=== PATIENT | female | born 1985 | race Caucasian/White ===

== ENCOUNTER 2020-06-24 02:27 | Outpatient (CLI) | payer OTHER, SELFPAY ==
[2020-06-24 18:16] LABS: SARS-CoV-2 RNA PCR Negative
== END 2020-06-24 02:28 | disposition home or self-care (01) ==
LOC: ANHCOVIDDT 02:28
PROVIDERS: Visit Provider Obstetrics & Gynecology
DX: Z01.812 Encounter for preprocedural laboratory examination (principal); Z20.828 Contact with and (suspected) exposure to other viral communicable diseases
CPT/HCPCS: 87635; C9803; U0003

== ENCOUNTER 2020-06-26 01:51 | Day surgery (SDC) | payer OTHER, SELFPAY ==
[2020-06-18 08:24] VITALS: BMI 38.7
[2020-06-26] MEDS: ACETAMINOPHEN 500 MG TABLET 1000 MG PO (10:21)
[2020-06-26] MEDS: LACTATED RINGERS 1,000 ML 30 ML IV CONT ×2 (10:28→13:40)
[2020-06-26 10:32] VITALS: BP 140/71; PULSE 81; TEMP 36.7; O2SAT 98
--- NOTE | 2020-06-26 11:26 | P.PNAN_ITS ---
Anes - Initial Pre Proc Eval Procedure: Operation Date: 06/26/20 12:00 Proposed Procedures p Hysteroscopy, Dilation and Curettage, Possible Polypectomy - Praful Armenta MD Date/Time: 06/26/20 11:26 Surgeon: Praful Armenta MD Pre Op Diagnosis: irregular bleeding/ Questionable Uterine Polyp Patient Data Age: 34 Gender: F Height: 5 ft 4 in Weight: 106.1 kg Last Vital Signs Temp 36.7 C 06/26/20 10:32 Pulse 81 06/26/20 10:32 BP 140/71 06/26/20 10:32 Pulse Ox 98 06/26/20 10:32 Allergies Allergy/AdvReac Type Severity Reaction Status Date / Time No Known Allergies Allergy Unknown Verified 06/18/20 08:23 Home Medications Medication Instructions Recorded Confirmed Type fexofenadine-pseudoephedrine 1 tablet PO Q12H PRN 06/18/20 06/26/20 History [Lorna-D 12 Hour] Patient hx anesthesia problems: none Family hx anesthesia problems: none [facility] Past Medical History Medical History (Updated 06/26/20 @ 11:26 by Joaquín Sinha MD) Morbid obesity BUBBA (obstructive sleep apnea) Surgical History Surgical History (Updated 06/26/20 @ 11:26 by Joaquín Sinha MD) History of section S/P laparoscopic cholecystectomy Social History Social History Smoking status: Never smoker Living arrangements: with family Spiritual care concerns: No Anes - Eval Final PreProcedure Day of Procedure 06/26/20 11:26 Patient weight: morbidly obese Heart: regular rate and rhythm Lungs: clear to auscultation Airway: Mallampati scale class II Neurological: alert and oriented Last oral intake: >/= 8 hours ASA classification: III Emergent: no Anesthetic plan: proceed Anesthesia type and monitoring: general GIVS and standard monitoring Informed Consent: The patient's anesthetic plan and its attendant risks and benefits were discussed with the patient/family/POA. Questions were solicited and answers provided to the satisfaction of the patient/family/POA.
--- NOTE | 2020-06-26 11:44 | PM.IMHP ---
H&P: HPI History of Present Illness Date/Time: 06/26/20 11:44 Chief complaint: irregular bleeding/ Questionable Uterine Polyp Narrative: 34 y/o with heavy vaginal bleeding. Ultrasound exam shows an endometrium that is 1.7cm thick. Adnexa show functional type changes. Review of Systems Review of Systems: All systems reviewed & are unremarkable except as noted in HPI and below PMFSH Past Medical History Medical History Morbid obesity BUBBA (obstructive sleep apnea) Surgical History Surgical History History of section S/P laparoscopic cholecystectomy Social History Social History Smoking status: Never smoker Living arrangements: with family Spiritual care concerns: No Meds Home Medications and Allergies Home Medications Medication Instructions Recorded Confirmed Type fexofenadine-pseudoephedrine 1 tablet PO Q12H PRN 06/18/20 06/26/20 History [Lorna-D 12 Hour] Allergies Allergy/AdvReac Type Severity Reaction Status Date / Time No Known Allergies Allergy Unknown Verified 06/18/20 08:23 Vital Signs Vital Signs - 24 hr 06/26/20 10:32 Temperature 36.7 C Pulse Rate 81 Blood Pressure 140/71 Pulse Oximetry 98 Exam Const: Orientation/consciousness: patient oriented x3 Other: Well-developed, well-nourished female in no acute distress. Neck: Thyroid: thyroid normal Lymphatic: no lymphadenopathy noted (in neck, axilla or inguinal nodes) Resp: Effort & Inspection: normal respiratory effort Auscultation: clear to auscultation bilaterally Cardio: Rate: regular rate Rhythm: regular rhythm Heart sounds: S1 normal heart sound present and S2 normal heart sound present GI: Other: ABD: Soft, nontender, nondistended. No guarding or rebound tenderness. No hepatosplenomegaly. : General: Yes no CVA tenderness Other: External genitalia: normal female hair distribution, without lesion. Urethral meatus: no lesion, non prolapsed. Bladder: no mass, nontender Vagina: well-estrogenized, without lesion or discharge. No cystocele or rectocele. Cervix: no lesion or discharge. Uterus: small, anteverted, freely mobile, nontender Adnexa: no mass or tenderness. Anus/perineum: no lesions, nontender Back/Spine/Pelvis: Back: no CVA tenderness Skin: General skin exam: normal color and no rashes or lesions noted Neuro: General: patient oriented x3 Extrem: Other: Extremities: nontender with no edema Psych: Mental Status: mental status grossly normal Affect: normal affect Assessment and Plan Assessment and plan (1) Menorrhagia: Code(s): N92.0 - Excessive and frequent menstruation with regular cycle Status: Acute Additional Plan I offered medical vs. surgical management. She prefers the latter. Specifically, I offered her a hysteroscopy with dilation and sharp curettage, with possible endometrial polypectomy. She understands risks of surgery to include risks of anesthesia, risks of pain, infection, bleeding, blood products, thromboembolic phenomena and damage to adjacent structures such as bowel, bladder, ureters, blood vessels and nerves. She understands all these risks and elects to proceed with surgery.
--- NOTE | 2020-06-26 12:12 | WPDHPUPDATE1 ---
History and Physical Update Update Date/Time: 06/26/20 12:12 History and Physical has been reviewed, including an updated exam of the patient. There are NO changes in the patient's condition. Risks, benefits, and alternatives have been discussed and questions answered. Patient agrees to proceed with procedure.
--- NOTE | 2020-06-26 13:35 | P.OP_ITS ---
Procedure Note - Detailed Date of procedure: 06/26/20 Pre-op diagnosis: irregular bleeding/ Questionable Uterine Polyp Heavy vaginal bleeding Post-op diagnosis: same Procedure performed: Hysteroscopy Dilation and sharp curettage Description of procedure: The patient was taken to the operating room where she was prepared and draped in the usual sterile fashion in the dorsal lithotomy position. The bladder was drained with a red rubber catheter. A sterile speculum was placed into the vagina. The anterior lip of the cervix was grasped with single-tooth tenaculum. Ten mL of 1% lidocaine was administered in a p aracervical block. The cervix was then gently dilated using Hegar dilators until an 8 mm dilator could be passed. Hysteroscopy was performed using sterile saline as a distention medium. Findings are as noted above. Sharp curettage was then performed, and endometrial curettings were collected on a Telfa pad and passed off to be sent to pathology. Hemostasis was excellent. Sponge, lap, needle and instrument counts were correct. The patient was awakened and taken to the recovery room in stable condition. I was present and scrubbed through the entire procedure. Implants: None Anesthesia: MAC and local (1% lidocaine) Surgeon: Praful Armenta MD Estimated blood loss (mL): 10 Drains: No Packing: No Pathology: yes (endometrial curettings) Complications: None Condition: stable Disposition: PACU Findings: Endometrial tissue was thick, but otherwise unremarkable. Both tubal ostia were seen.
[2020-06-26] MEDS: KETOROLAC 30 MG/ML VIAL (*BKC) IV PUSH (13:38)
[2020-06-26 13:40] VITALS: BP 129/74; PULSE 90; RESP 22; O2SAT 99
[2020-06-26 14:10] VITALS: BP 124/75; PULSE 63; RESP 16
[2020-06-26] MEDS: oxyCODONE HCL (*CRX) 5 MG TAB IR PO (14:13)
[2020-06-26 14:40] VITALS: BP 114/76; PULSE 63; RESP 16
== END 2020-06-26 14:50 | disposition home or self-care (01) ==
PROVIDERS: Visit Provider Obstetrics & Gynecology
PROC: 0U5B8ZZ Destruction of Endometrium, Via Natural or Artificial Opening Endoscopic (ICD-10-PCS; CPT 58563; principal; 2020-06-26 12:00)
DX: N92.0 Excessive and frequent menstruation with regular cycle (principal); G47.33 Obstructive sleep apnea (adult) (pediatric); E66.01 Morbid (severe) obesity due to excess calories; Z68.41 Body mass index [BMI] 40.0-44.9, adult
CPT/HCPCS: 58558; 88305; A9270; J1885; J2250; J2704; J3010; J7030; J7120

== ENCOUNTER 2021-01-10 09:36 | Emergency (ER) | payer OTHER, SELFPAY ==
[2021-01-10 10:17] VITALS: BP 126/89; PULSE 80; RESP 16; TEMP 36.4; O2SAT 98
--- NOTE | 2021-01-10 10:23 | ED.URI ---
HPI - URI/Sore Throat General Chief Complaint: Upper Respiratory Infection Stated Complaint: covid symptoms Time Seen by Provider: 01/10/21 10:23 Source: patient Mode of arrival: ambulatory Limitations: no limitations History of Present Illness HPI Narrative: Serenity Sheppard is a 35 yo female who was diagnosed with Covid yesterday at her testing site and is here today to have her vital signs checked. Patient is nervous about the Covid diagnosis because friends sister within 24 hours of a Covid positive test and her was very ill. He also received vaccine results of radiology vaccine. Reporting her son had Covid over [place] was also sick for 2 to 3 weeks She has some minor upper respiratory symptoms her O2 sats are 98% she does have some fatigue but otherwise appears fairly healthy Related Data Allergies Allergy/AdvReac Type Severity Reaction Status Date / Time No Known Allergies Allergy Unknown Verified 06/18/20 08:23 Review of Systems Review of Systems: Narrative: CONSTITUTIONAL: Denies fever, chills, sweats. Covid positive test yesterday EYES: Denies visual changes, redness, discharge. ENT: Has rhinorrhea, has congestion, sore throat, otalgia. CARDIOVASCULAR: Denies chest pain, palpitations, edema. RESPIRATORY: Denies dyspnea, wheezing, has dry cough GASTROINTESTINAL: Denies abdominal pain, nausea, vomiting, diarrhea. GENITOURINARY: Denies dysuria, hematuria, abnormal discharge SKIN: Denies rash or itching. NEUROLOGIC: Denies numbness, or focal weakness. PSYCHIATRIC: Denies anxiety or depression. PMFSH Past Medical History Medical History Morbid obesity BUBBA (obstructive sleep apnea) Surgical History Surgical History History of section S/P laparoscopic cholecystectomy Social History Social History Smoking status: Never smoker Spiritual care concerns: No Comments At time of signature, I agree with nursing past medical, surgical, social and family history. There is no relevant family history pertinent to the presenting complaint. Exam Narrative: Exam Narrative: GENERAL: This is a well-nourished, well-developed patient, in mild distress. f HEAD: normocephalic, atraumatic. EYES: Sclera clear/white. Vision is grossly intact. EARS: External ears normal, auditory canals clear and without drainage, TMs normal without perforation. Hearing grossly intact. NOSE: External nose normal without nasal discharge, nares with redness, has rhinorrhea. THROAT: Mucous membranes moist, NECK: Neck supple, non-tender CARDIOVASCULAR: Regular rate and rhythm without murmurs, gallops, or rubs. RESPIRATORY: Clear to auscultation. Breath sounds equal bilaterally. No wheezes, rales, or rhonchi. GASTROINTESTINAL: Abdomen soft, SKIN: warm, intact with no suspicious lesions or rash, good texture and turgor. NEURO: awake, alert, and oriented to person, place and time. There were no obvious focal neurologic abnormalities. Steady gait EXTREMITIES: Normal range of motion. BACK: tender without deformity Course Course Emergency Course: Judy Miller is a 35-year-old female with a positive Covid test that came to [facility] -wanted reassurance about her vital signs and URI-he is on CPAP, can tolerate a forced air when she is not asleep Patient to continue OTC meds including Robitussin cough syrup will take 600 mg ibuprofen 3 times a day and has Zyrtec at home she was given a prescription for an albuterol inhaler and told to seek higher level of medical care if she develops shortness of breath when she walks Vital Signs Vital signs: Vital Signs Temperature 97.5 F L 01/10/21 10:17 Pulse Rate 80 01/10/21 10:17 Respiratory Rate 16 01/10/21 10:17 Blood Pressure 126/89 01/10/21 10:17 Pulse Oximetry 98 01/10/21 10:17 Temperature 97.5 F
== END 2021-01-10 11:05 | disposition home or self-care (01) ==
PROVIDERS: Emergency Provider Nurse Practitioner
DX: U07.1 COVID-19 (principal); E66.01 Morbid (severe) obesity due to excess calories; Z68.37 Body mass index [BMI] 37.0-37.9, adult; G47.30 Sleep apnea, unspecified
CPT/HCPCS: 99213; G0463

== ENCOUNTER → 2021-05-15 05:40 | Outpatient (CLI) | payer OTHER, SELFPAY ==
[2021-05-15 19:18] LABS: SARS-CoV-2 RNA PCR Negative
== END ==
PROVIDERS: PCP Family Medicine; Visit Provider Family Medicine
DX: Z20.822 Contact with and (suspected) exposure to COVID-19 (principal)
CPT/HCPCS: C9803; U0003; U0005

== ENCOUNTER → 2021-09-10 10:30 | Outpatient (CLI) | payer OTHER, SELFPAY ==
[2021-09-10 21:06] LABS: SARS-CoV-2 RNA PCR Positive
== END ==
PROVIDERS: PCP Family Medicine; Visit Provider Family Medicine
DX: U07.1 COVID-19 (principal)
CPT/HCPCS: C9803; U0003; U0005

== ENCOUNTER 2025-01-24 09:26 | Emergency (ER) | payer BC, SELFPAY ==
--- NOTE | ~2025-01-24 | XR_ITS ---
EXAMINATION: XR chest 2V 01/24/2025 10:03 INDICATION: Midsternal chest pain PROCEDURE: 2 view chest COMPARISON: 09/01/2017 FINDINGS: The lungs are clear. The cardiomediastinal silhouette is within normal limits. There are no pleural effusions. There is no pneumothorax suspected. IMPRESSION: 1: NO ACUTE CARDIOPULMONARY DISEASE. Reviewed, dictated and finalized at location A.
--- NOTE | 2025-01-24 09:29 | ECG_ITS ---
Test Date: 2025-01-24 09:37:49 Measurements Intervals Cammal Rate: 83 P: 43 DE: 151 QRS: -4 QRSD: 90 T: 4 QT: 346 QTc: 409 Interpretive Statements SINUS RHYTHM LOW QRS VOLTAGE IN PRECORDIAL LEADS [QRS DEFLECTION < 1.0 mV IN CHEST LEADS] No previous ECG available for comparison Electronically Signed On 01-24-2025 11:59:05 CDT by Lisseth Chavez M.D.
[2025-01-24 09:32] VITALS: BP 120/77; PULSE 86; RESP 14; TEMP 36.6; O2SAT 100
--- OUTSIDE RECORDS SUMMARY | 2025-01-24 09:34 | XMS_ITS | Clinical Summary ---
Author Organization [facility] Care Team Providers Care Energy Professional Name Role Phone Unavailable Primary Care Provider Unavailabl e Social History Tobacco Use Types Packs/Day Years Used Date Smoking Tobacco: Never Assessed Comments Unknown Sex and Gender Information Value Date Recorded Sex Assigned at Not on file Legal Sex Female 9:09 AM CDT Gender Identity Not on file Sexual Orientation Not on file Plan of Treatment Health Maintenance Due Date Last Done Comments Hepatitis C Virus (HCV) Screening 1985 TdaP Immunization 1985 Hepatitis B Immunization (1 of 3 - 19+ 3-dose series) 2004 Pap Smear 2006 Cervical Cancer Screening (CCS) 12/21/2015 HPV/Cotest 12/21/2015 Influenza Immunization (#1) 2024 SARS-COV-2 Immunization ( season) 2024 Respiratory Syncytial Virus (RSV) Immunization (Adult) (1 - 1-dose 75+ series) 2060 Meningococcal Immunization (ACWY) Aged Out No longer eligible based on patient's age to complete this topic Pneumococcal Immunization Combined Aged Out No longer eligible based on patient's age to complete this topic Rotavirus Immunization Aged Out No lo nger eligible based on patient's age to complete this topic
--- OUTSIDE RECORDS SUMMARY | 2025-01-24 09:34 | XMS_ITS | Clinical Summary ---
Author Organization [facility] Address [facility] [place] [address] Care Team Providers Care Periodontist Name Role Phone Unavailable Primary Care Provider Unavailabl e Encounters Date Type Department Care Team Description 12/03/2024 7:35 AM CDT - 12/03/2024 11:59 PM CDT Hospital Encounter [facility] [place] [address] Alia Jain MD Discharge Disposition: Home or Self Care (Routine Discharge) from Last 3 Months Social History Tobacco Use Types Packs/Day Years Used Date Smoking Tobacco: Never Assessed Comments Unknown Sex and Gender Information Value Date Recorded Sex Assigned at Not on file Legal Sex Female 7:15 PM CDT Gender Identity Not on file Sexual Orientation Not on file Plan of Treatment Health Maintenance Due Date Last Done Comments Cervical Cancer Screening Pa p Smear (Age 30 to 64) Every 3 Years 1985 Annual Physical 1988 Hepatitis C 12/21/2003 DTaP, Tdap and Td Vaccines ( 1 - Tdap) 2004 Hepatitis B Vaccines (1 of 3 - 19+ 3-dose series) 2004 Cervical Cancer Screening Pa p with HPV Testing (Age 30 to 64) Every 5 Years 12/21/2015 Cervical Cancer Screening with HPV 12/21/2015 COVID-19 Vaccine (2023-2 5 season) 2024 HPV Vaccines Aged Out No longer eligi ble based on patient's age to complete this topic Meningococcal B Vaccine Aged Out No l onger eligible based on patient's age to complete this topic Meningococcal Vaccine Aged Out No lyla li eligible based on patient's age to complete this topic Pneumococcal Vaccine: Pediat rics (0 to 5 Years) and At-Risk Patients (6 to 49 Years) Aged Out No longer eligible b ased on patient's age to complete this topic RSV Immunizations Under 20 Months Aged Out No longer eligible based on patient's age to complete this topic Procedures Procedure Name Priority Date/Time Associated Diagnosis Comments PATHOLOGY Routine 12/04/2024 12:00 AM CDT from Last 3 Months Results * Pathology (12/04/2024 12:00 AM CDT) PATHOLOGY [facility] Department of Laboratory Medicine [address] [place] [address] , extension [phone] Pathology Report Surgical Pathology Report Name: ROMINA GARNER Specimen #: [id number] Age: 4 1985 (Age: 38) Location: [facility] Sex: F Procedure Date: 12/04/2024 Hospital #: [id number] Date Received: 12/05/2024 Date Reported: 12/06/2024 Provider: ALIA JAIN Source: Soft tissue mass, left mid back Clinical History: Fatty mass. FINAL DIAGNOSIS: Soft tissue, left mid back, excision: -Fragments of mature adipose tissue, suggestive of lipoma Gross Description: Received in formalin, labeled with a patient label and as fatty mass left mid back are multiple disrupted pieces of soft yellow tissue, 4.5 x 3.0 x 1.0 cm in aggregate. Sections reveal pale yellow cut surfaces. Typewriter Ribbon Winder tissue is submitted in cassette 1. Gross examination (when applicable) was performed at [facility], [address] [place] [address]. This case was interpreted and signed out at [facility], [address] [place] [address]. Electronically Signed Out MAURO MORRIS MD [facility] 12/04/2024 12/05/2024 11: 56 AM CDT Comment:Soft tissue mass, le ft mid back us Alia Jain MD PATHOLOGY/CYTOLOGY OR DERABLES Final Result [facility] [address] [place] [address], [id number] from Last 3 Months
--- OUTSIDE RECORDS SUMMARY | 2025-01-24 09:34 | XMS_ITS | Data Portability ---
Author Organization [place] - [facility] [employer], Main Office Address [address] [place] [address] Assessment Encounter Date Assessment Date Assessment LastModified by Organization Details LastModified Time 11/08/2024 11/08/2024 A total of 58 minutes were spent [id number] with this patient [email or web address] Not available 11/08/2024 10:38:07 11/28/2024 11/28/2024 Fatty mass of mid back. Discussed options. Will schedule excision in the OR. Explained procedure and risk including pain, bleeding, infection. Pt agreeable and voiced understanding. Not available 11/28/2024 13:28:11 11/30/2024 11/30/2024 Time spent with patient included: preparing to see patient by reviewing tests, obtaining and reviewing history, medical examination and evaluation, counseling and educating the patient, ordering medications and tests, documenting clinical information in EHR, independently interpreting results and communicating results to the patient for a total of 28 minutes. Not available 11/30/2024 14:49:14 12/12/2024 12/12/2024 s/p excision lipoma of mid back. Doing well. no post op concerns. f/u PRN Not available 12/12/2024 14:05:29 01/02/2025 01/02/2025 Time spent with patient included: preparing to see patient by reviewing tests, obtaining and reviewing history, medical examination and evaluation, counseling and educating the patient, ordering medications and tests, documenting clinical information in EHR, independently interpreting results and communicating results to the patient for a total of 25 minutes. Not available 01/02/2025 14:52:13 Plan of Treatment Reminders Order Date Submit Date Provider Last Modified By Organization Details Last Modified Time Details Appointments None recorded. Lab lipid panel, serum [address] (Lab), [address] [place], [address], 5 08:13:40 CMP, serum or plasma [address] (Lab), [address] [place], [address], 5 08:13:41 CBC w/ auto diff [address] (Lab), [address] [place], [address], 5 08:13:40 iron + total iron-bindin g capacity (TIBC), serum [address] (Lab), [address] [place], [address], 5 08:13:40 vitamin D, 25-hydroxy, total, serum [address] (Lab), [address] [place], [address], 5 08:13:40 vitamin B12 + folate, serum or blood [address] (Lab), [address] [place], [address], 5 08:13:41 glycohemogl obin, total, blood [address] (Lab), [address] [place], [address], 5 08:13:40 TSH, serum or plasma 2024 025 [facility] (Lab), [address] [place], [address], 08:13:[address] referral - Please call patient to schedule an appointment . Thank you. 2024 025 Bernardo Dowling MD, [address] [place], [address], 5 12:35:30 general surgeon referral - Please call patient to schedule an appointment . Thank you. 2024 025 CHASE Weber MD, [address] [facility], [facility] [address], [place], [address], 11:10:40 Procedures None recorded. Surgeries None recorded. Imaging polysomnogr am, diagnostic, 6 yrs or older - Please call patient to schedule. 2024 025 [facility] [place], [address] [place], [address], 5 16:41:56 US, upper back 2024 025 [facility] ([facility] Sched[facility]), [address] [place], [address], 10:18:36 US, thyroid 2024 025 [email or web address] Not available 10:25:51 Medication Orders nystatin 100,000 unit/gram topical powder 2024 025 [id number], [address] [place], [place], [id number], 10:16:02 Patient TargetsNo targets recorded. Patient InstructionsNo instructions recorded. 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 Thank you. Referring Physician: [facility], Encounter Date: 11/08/2024 General Surgeon Referral for Lipoma of back Please call patient to schedule an appointment. Thank you. Referring Physician: Gloria Booth [facility] Medicine, Encounter Date: 11/08/2024 Results Created Date Observation Date Name Description Value Unit Range Abnormal Flag Note LastModifiedBy Organization Detail LastModifiedTime 12/05/1912/04/2024 URINE HCG QUAL/ POINT OF CARE point of care urine preg negati ve negati ve Not Available [facility] (Lab) [address] [place], [address], 12/04/2024 08:16:55 12/05/1912/04/2024 GLUCO SE (POIN T OF CARE) glucose (point of care) 87 mg/dL 74-99 Not Available [facility] (Lab) [address] [place], [address], 12/04/2024 08:41:27 11/23/19 25 11/21/2024 US, upper back No observ ation record ed. [facility] ([facility] Call Scheduling) [address] [place], [address], 11/22/2024 10:31:44 12/29/19 25 12/27/2024 polys omnog diana, diagn ostic , 6 yrs or older No observ ation record ed. [facility] [address] [place], [address], 12/28/2024 16:41:56 Result Notes None recorded. Problems Name Problem SNOMED Code Status Onset Date Resolution Date Notes Provider Name and Address Organization Details Recorded Time Anxiety disorder 070919201 Completed 202011/08/2024 DREA Diaz [address] [facility], [facility] [address], [place], [address] , [facility] [employer] 09:35:51 Chronic diarrhea 820338556 Completed 202011/08/2024 DREA Diaz [address], [place], [address] , [employer] 5 10:38:25 Sore throat 213326110 Completed 202102/23/2024 DREA Diaz [address], [place], [address] , [employer] 4 10:05:38 Hypertrigl yceridemia 961088424 Active 2020 Not Available [facility] 3 17:13:27 Type 2 diabetes mellitus without complicati on 294308718 Active 2020 Not Available [facility] 3 17:13:27 Vitamin D deficiency 27458699 Active 2020 Not Available [facility] 3 17:13:27 Goiter 3494177 Completed 202011/08/2024 DREA Diaz [address], [place], [address] , [employer] 5 09:35:45 Pharyngiti s 074667420 Completed Not Available [facility] 3 17:13:28 Obesity 162044515 Active 2020 Not Available [facility] 3 17:13:28 History of cholecyste ctomy 818854590 Completed 202011/08/2024 DREA Diaz [address], [place], [address] , [employer] 5 09:35:41 Prediabete s 130157577 Completed 202002/23/2024 DREA Diaz [address], [place], [address] , [employer] 4 10:05:36 COVID-19 871541317 Completed 202102/23/2024 DREA Diaz [address], [place], [address] , [employer] [facility] 4 10:05:33 Type 2 diabetes mellitus 94201163 Completed 202311/08/2024 DREA Diaz [address], [place], [address] , [employer] [facility] 5 09:35:39 Multinodul ar goiter 388977429 Active 2023 DREA Diaz [address], [place], [address] , [employer] [facility] [employer] [facility] 4 10:25:24 Anxiety 50131866 Active 2023 DREA Diaz [address], [place], [address] , [employer] [facility] 4 10:31:34 Obstructiv e sleep apnea syndrome 21117053 Active 2024 DREA Diaz [address], [place], [address] , [employer] [facility] [employer] [facility] 5 09:43:24 Attention deficit hyperactiv ity disorder 529123874 Active 2024 DREA Diaz [address], [place], [address] , [employer] [facility] [employer] [facility] 5 09:52:09 Intertrigo of abdominal skin fold 845053835 Active 2024 DREA Diaz [address], [place], [address] , [employer] [facility] [employer] [facility] 5 10:09:18 Irritable bowel syndrome 15499571 Active 2024 DREA Diaz [address], [place], [address] , [employer] [facility] [employer] [facility] 5 10:38:34 Sleep apnea 92568780 Active 2024 Juli Jones NP [address] [facility], [address] [address], [place], [address] , [place] [employer] 5 14:28:27 Periodic limb movement disorder 964443012 Active 2024 Juli Jones NP [address] [facility], [address] [address], [place], [address] , [employer] 5 14:28:51 Notes:[facility] diagnostic sleep study 12/27/24 sleep onset = 38.5 minutes, REM onset 93.5 minutes, AHI = 3, supine AHI = 5, REM AHI = 14, PLMI = 6 Medical History: Anxiety/ADHD Intertrigo Obesity with mild OSAHS, AHI = 3, 12/27/24 Left thyroid nodules Mixed hyperlipidemia T2DM IBS PLMD Vit D deficiency Procedure History: Left back lipoma excision 2024 Problem Notes None recorded. Procedures Surgical History Date Name Laterality Status Provider Name and Address Organization Details Recorded Time cholecystectomy completed Not Available [facility] 11/11/2022 17:12:42 section completed Not Available [facility] 11/11/2022 17:12:42 Imaging Results Imaging Date Name Status LastModified by Organiz atalex Details LastModified Time 11/21/2024 [facility] [facility] [address] [place], [address], 11/22/2024 10:31:44 12/27/2024 polysomnogr am, diagnostic, 6 yrs or older completed [facility] [address] [place], [address], 12/28/2024 16:41:56 Procedure Notes None recorded. Medical Equipment None Reported. Medications Name Sig Start Date Stop Date Status Note LastModified by Organization Details LastModified Time cyclobenzap rine 10 mg tablet 02/06 completed Not Available Not Available Not Available amoxicillin 500 mg capsule TAKE 1 CAPSULE BY MOUTH EVERY 8 HOURS UNTIL GONE 10/13 completed Not Available Not Available Not Available trazodone 50 mg tablet TAKE 1 TABLET BY MOUTH EVERY DAY AT BEDTIME 2024 active Not Available Not Available Not Avai lable atorvastati n 10 mg tablet Take 1 tablet every day by oral route at bedtime for 90 days. 02/22 completed Not Available Not Available Not Available azithromyci n 250 mg tablet TAKE 2 TABLETS BY MOUTH ON DAY 1 THEN 1 TABLET BY MOUTH EVERY DAY FOR 4 MORE DAYS 02/22 completed Not Available Not Available Not Available ibuprofen 800 mg tablet 02/06 completed Not Available Not Available Not Available fluconazole 150 mg tablet 02/06 completed Not Available Not Available Not Available clarithromy kristina 500 mg tablet TK 1 T PO Q 12 H FOR 7 DAYS 02/06 completed Not Available Not Available Not Available hydrocodone 5 mg-acetamin ophen 325 mg tablet TAKE 1 TABLET BY MOUTH EVERY 4 TO 6 HOURS NEEDED FOR PAIN 02/22 completed Not Available Not Available Not Available nystatin 500,000 unit tablet 02/06 completed Not Available Not Available Not Available tramadol 50 mg tablet 02/06 completed Not Available Not Available Not Available oxycodone-a cetaminophe n 5 mg-325 mg tablet TAKE 1 TABLET BY MOUTH EVERY 4 HOURS NEEDED FOR PAIN active Not Available Not Available No t Available Guaiatussin AC 10 mg-100 mg/5 mL oral liquid TK 5 ML PO Q 12 HOURS PRN 02/06 completed Not Available Not Available Not Available amoxicillin 875 mg tablet TAKE 1 TABLET BY MOUTH TWICE DAILY UNTIL ALL TAKEN 02/22 completed Not Available Not Available Not Available buspirone 10 mg tablet Take 1 tablet every 12 hours by oral route as needed for 30 days. 02/22 completed Not Available Not Available Not Available isomethepte ne-dichlora lphen-aceta minophen 65 mg-100 mg-325 mg capsule TK 1 TO 2 CS PO Q 6 H PRF CULVER MAX 6 CS PER DAY active Not Available Not Available No t Available hydroxyzine HCl 25 mg tablet Take 2 tablets every day by oral route as needed for 30 days. 11/08 completed Not Available Not Available Not Available ergocalcife rol (vitamin D2) 1,250 mcg (50,000 unit) capsule TAKE 1 CAPSULE BY MOUTH 1 TIME EVERY WEEK DIRECTED active Not Available Not Available No t Available levofloxaci n 500 mg tablet TK 1 T PO Q 24 H UTD FOR 7 DAYS 02/06 completed Not Available Not Available Not Available methylpredn isolone 4 mg tablets in a dose pack TAKE DIRECTED 02/22 completed Not Available Not Available Not Available metformin ER 500 mg tablet,exte nded release 24 hr Take 1 tablet twice a day by oral route with meals for 30 days. 02/22 completed Not Available Not Available Not Available amoxicillin 875 mg-potassiu m clavulanate 125 mg tablet TK 1 T PO BID active Not Available Not Available No t Available Ventolin HFA 90 mcg/actuati on aerosol inhaler 02/06 completed Not Available Not Available Not Available cholestyram ine (with sugar) 4 gram powder for susp in a packet MIX AND DRINK 1 PACKET BY MOUTH THREE TIMES DAILY DIRECTED 02/22 completed Not Available Not Available Not Available bupropion HCl XL 150 mg 24 hr tablet, extended release TAKE 1 TABLET BY MOUTH EVERY DAY DIRECTED 11/08 completed Not Available Not Available Not Available chlorhexidi ne gluconate 0.12 % mouthwash SWISH 1/2 OZ FOR 30 SECONDS TWICE DAILY TO THREE TIMES DAILY DIRECTED 02/22 completed Not Available Not Available Not Available icosapent ethyl 1 gram capsule TAKE 2 CAPSULES BY MOUTH TWICE DAILY DIRECTED 02/22 completed Not Available Not Available Not Available Mounjaro 7.5 mg/0.5 mL subcutaneou s pen injector ADMINISTE R 7.5 MG UNDER THE SKIN EVERY WEEK DIRECTED 11/08 completed Not Available Not Available Not Available Mounjaro 5 mg/0.5 mL subcutaneou s pen injector ADMINISTE R 5 MG UNDER THE SKIN EVERY WEEK DIRECTED 11/08 completed Not Available Not Available Not Available Mounjaro 15 mg/0.5 mL subcutaneou s pen injector ADMINISTE R 15 MG UNDER THE SKIN EVERY WEEK DIRECTED active Not Available Not Available No t Available Mounjaro 10 mg/0.5 mL subcutaneou s pen injector ADMINISTE R 10 MG UNDER THE SKIN EVERY WEEK DIRECTED 11/08 completed Not Available Not Available Not Available M[employer]jaro 12.5 mg/0.5 mL subcutaneou s pen injector ADMINISTE R 12.5 MG UNDER THE SKIN EVERY WEEK DIRECTED 11/08 completed Not Available Not Available Not Available Mounjaro 2.5 mg/0.5 mL subcutaneou s pen injector ADMINISTE R 2.5 MG UNDER THE SKIN EVERY WEEK DIRECTED 11/08 completed Not Available Not Available Not Available Klayesta 100,000 unit/gram topical powder APPLY TO THE AFFECTED AREA TOPICALLY TWICE DAILY active Not Available Not Available No t Available Vitals Date Recorded Body height Body mass index (BMI) Body weight Body temperature Heart rate Respiratory rate Oxygen saturation Oxygen saturation in Arterial blood by Pulse oximetry Pain severity - 0-10 verbal numeric rating [Score] - Reported Systolic blood pressure Diastolic blood pressure Provider Name and Address Organization Details Last Updated DateTime 5 165.1 cm 29.8 kg/m2 93158.7 3 g 97 [degF] 67 /min 20 /min 97 % 97 % 0 100 mm[Hg] 70 mm[Hg] Zahra Maya RN [facility] 5 09:31:30 Date Recorded Body height Body mass index (BMI) Body weight Heart rate Oxygen saturation Oxygen saturation in Arterial blood by Pulse oximetry Systolic blood pressure Diastolic blood pressure Provider Name and Address Organization Details Last Updated DateTime 5 165.1 cm 29.8 kg/m2 39614.0 3 g 70 /min 98 % 98 % 102 mm[Hg] 68 mm[Hg] LEESA Altamirano [place] [employer] 5 10:33:48 Date Recorded Body height Body mass index (BMI) Body weight Body temperature Heart rate Oxygen saturation Oxygen saturation in Arterial blood by Pulse oximetry Systolic blood pressure Diastolic blood pressure Provider Name and Address Organization Details Last Updated DateTime 5 165.1 cm 30 kg/m2 54348.6 3 g 97.5 [degF] 82 /min 98 % 98 % 110 mm[Hg] 66 mm[Hg] Leila Campos MA [employer] 5 14:23:18 Date Recorded Body height Body mass index (BMI) Body weight Body temperature Heart rate Respiratory rate Oxygen saturation Oxygen saturation in Arterial blood by Pulse oximetry Systolic blood pressure Diastolic blood pressure Provider Name and Address Organization Details Last Updated DateTime 5 165.1 cm 30 kg/m2 15548.6 3 g 97.5 [degF] 82 /min 16 /min 98 % 98 % 110 mm[Hg] 60 mm[Hg] Amrita Gross [place] [employer] [facility] [employer] 5 11:26:53 Date Recorded Body height Body mass index (BMI) Body weight Body temperature Heart rate Oxygen saturation Oxygen saturation in Arterial blood by Pulse oximetry Systolic blood pressure Diastolic blood pressure Provider Name and Address Organization Details Last Updated DateTime 5 165.1 cm 29.1 kg/m2 60807.6 6 g 97.2 [degF] 91 /min 97 % 97 % 112 mm[Hg] 68 mm[Hg] Leila Campos MA [facility] [employer] [facility] 5 14:24:08 Social History Question Answer Notes LastModified by Organizat ion Details LastModified Time Tobacco Smoking Status Never Smoker Not Available [facility] 11/11/2022 17:12:32 Do You Have An Advance Directive? No [id number] Information not available 11/11/2022 Do You Wear A Helmet When Biking? Yes MIGRATION.03354 [id number] Information not available 11/11/2022 Is Blood Transfusion Acceptable In An Emergency? Yes Information not available 02/23/2024 What Is Your Level Of Caffeine Consumption? Heavy MIGRATION.[id number] Information not available 11/11/2022 What Is Your Code Status? Full Code Information not available 02/23/2024 In The 14 Days Before Symptom Onset, Have You Had Close Contact With A Laboratory-confir med COVID-19 While That Case Was Ill? No Information not available 02/23/2024 In The 14 Days Before Symptom Onset, Have You Had Close Contact With A Person Who Is Under Investigation For COVID-19 While That Person Was Ill? No Information not available 02/23/2024 What Type Of Diet Are You Following? REGULAR MIGRATION.[id number] Information not available 11/11/2022 Do You Have An Electrostatic Air Filter? No Information not available 01/02/2025 Have There Been Any Changes To Your Family Or Social Situation? No MIGRATION.15014 [id number] Information not available 11/11/2022 Are There Any Guns Present In Your Home? No MIGRATION.04178 [id number] Information not available 11/11/2022 Do You Have A Humidifier? No Information not available 01/02/2025 Do You Use Insect Repellent Routinely? No MIGRATION.09389 [id number] Information not available 11/11/2022 Where Do You Live? 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 No MIGRATION.13793 [id number] Information not available 11/11/2022 Do You Have Moisture Problems In Your Home? No Information not available 01/02/2025 What Was The Date Of Your Most Recent Tobacco Screening? 01/02/2025 Information not available 01/02/2025 How Many Children Do You Have? 2 Information not available 02/23/2024 Have You Ever Been Counseled For Unhealthy Alcohol Use? No MIGRATION.16961 [id number] Information not available 11/11/2022 Do You Have Any Pets? Yes MIGRATION.05143 [id number] Information not available 11/11/2022 What Is Your Relationship Status? MIGRATION.[id number] 13536 Information not available 11/11/2022 Do You Use Your Seat Belt Or Car Seat Routinely? Yes MIGRATION.32265 43562 Information not available 11/11/2022 Do You Have Smoke And Carbon Monoxide Detectors In Your Home? Yes MIGRATION.37687 [id number] Information not available 11/11/2022 Are You Passively Exposed To Smoke? No MIGRATION.27878 06583 Information not available 11/11/2022 Are There Any Smokers In Your House? No MIGRATION.24580 [id number] Information not available 11/11/2022 Do You Participate In Social Media? Yes MIGRATION.60166 32936 Information not available 11/11/2022 Do You Use Sunscreen Routinely? Yes MIGRATION.64818 84200 Information not available 11/11/2022 Has Tobacco Cessation Counseling Been Provided? No MIGRATION.22491 39601 Information not available 11/11/2022 Have You Recently Traveled Abroad? No MIGRATION.61907 20089 Information not available 11/11/2022 Are You Currently In School? No MIGRATION.58777 83392 Information not available 11/11/2022 Do You Have Any Dietary Restrictions? No MIGRATION.27437 18663 Information not available 11/11/2022 Sex: Female Functional Status Question Answer Note LastModified by Organizat ion Details LastModified Time Do you use any illicit or recreational drugs? No MIGRATION.[id number] Information not available 11/11/2022 Do you or have you ever used any other forms of tobacco or nicotine? No MIGRATION.528019 3772 Information not available 11/11/2022 What is your level of alcohol consumption? Occasional MIGRATION.758100 5423 Information not available 11/11/2022 Are you currently employed? Yes Information not available 02/23/2024 Have you been exposed to chemicals or toxins? not that aware of Information not available 01/02/2025 What is your occupation? [employer] Information not available 02/23/2024 What is your exercise level? Occasional MIGRATION.045208 4154 Information not available 11/11/2022 Mental Status Question Answer Note LastModified by Organization D etails LastModified Time Do you feel stressed (tense, restless, nervous, or anxious, or unable to sleep at night)? [id number] Information not available 02/23/2024 Family History Relationship Description Onset Age of this Age Resolved Age Notes LastModified by Organization Details LastModified Time Maternal Grandfather Family history of malignant neoplasm rmacios Not available 2024 10:54:28 Mother Diabetes mellitus [id number] Not available 11/11/2022 17:12:42 Mother Hypothyroidi sm rmacios Not available 2024 10:54:28 Medical History Condition Response DIABETES, TYPE Y OTHER # 1 GI PROBLEMS Y OBESITY Y Gynecological History Statement/Question Response Abnormal Pap N Flow Moderate Date of LMP 11/06/2024 STIs/STDs N Dislike of Light during Menstrual Headac he N Duration of Flow (days) 5 Most Recent Mammogram Current Control Method N/A Age at Menarche 10 Breast Problems none Date of Last Colonoscopy Frequency of Cycle (Q days) 5 Most Recent Bone Density Sexually Active? Y Weight gain Y Menses Monthly Y Date of Last Pap Smear Desired Control Method N/A Discharge little Obstetrics History GPAL:G 2 P 0 0 0 2 Type Value Multiple Births 2 Full Term 0 Induced 0 Spontaneous 0 Premature 0 Living 2 Ectopics 0 Total 2 Past Encounters Encounter ID Performer Location Encounter Start Date Encounter Closed Date Diagnosis/Indication Diagnosis SNOMED-CT Code Diagnosis ICD10 Code Diagnosis Note [id number] Marcos Chavez MD [facility] [address] [place] [address] 02/06/2021 00:00:00 02/06/2021 10:33:00 [id number] Marcos Chavez MD [facility] [address] [place] [address] 03/19/2021 00:00:00 03/19/2021 17:59:31 [id number] Marcos Chavez MD [facility] [address] [place] [address] 03/25/2021 00:00:00 03/25/2021 18:24:14 [id number] Marcos Chavez MD [facility] [address] [place] [address] 04/02/2021 00:00:00 04/02/2021 12:42:15 [id number] Marcos Chavez MD [facility] [address] [place] [place] [address] 05/14/2021 00:00:00 05/14/2021 15:13:18 [id number] Marcos Chavez MD [facility] [address] [place] [address] 07/10/2021 00:00:00 07/10/2021 09:26:34 [id number] Marcos Chavez MD [facility] [address] [place] [address] 07/14/2021 00:00:00 07/14/2021 11:28:56 [id number] Marcos Chavez MD [facility] [address] [place] [address] 10/13/2021 00:00:00 10/13/2021 11:25:03 [id number] Marcos Chavez MD [facility] [address] 02/23/2024 09:40:47 02/23/2024 11:25:12 Type 2 diabetes mellitus 78576620 E11.9 Did not tolerate metformin Multinodular goiter 2375 19821 E04.2 Anxiety 17743586 F41.9 Hypertriglyceridemia 302 320140 E78.2 [id number] Marcos Chavez MD [facility]_[address] [address] 11/08/2024 09:14:14 11/08/2024 10:25:51 Hypertriglyceridemia 471597651 E78.2 Last labs 359 Type 2 grady betes mellitus without complication 670079555 E11.9 Tolerating Mounjaro well Lipoma of back 841897378 D17.1 [id number]|2025-01-24 09:55:00|2025-01-24 09:55:00|ED_ITS|[facility]|Health Information Management|[id number]|"HPI - Chest Pain General Chief Complaint: Chest Pain Stated Complaint: chest pain since 0300 Time Seen by Provider: 01/24/25 09:42 History of Present Illness HPI narrative: 39-year-old female with history of cholecystectomy in [place] presents to the emergency department for intermittent lower chest pain/epigastric pain since 3:00 a.m. this morning. Patient states she woke up in the middle the night with discomfort in this region that she describes as a “tight” and squeezing sensation. She states the pain is intermittent and will occur every few seconds to few minutes, however over the past hour has become less frequent. She states at times it radiates into her back. She initially thought her symptoms were due to indigestion which she has frequently, so she took some [id number] antacids without improvement. States she had pizza and wings for dinner around 5:00 p.m. last night. She denies cough, congestion, hemoptysis, shortness of breath, fever, history of VTE, lower extremity edema. Patient is not currently having symptoms at time of my evaluation. Related Data Allergies Allergy/AdvReac Type Severity Reaction Status Date / Time No Known Allergies Allergy Unknown Verified 01/24/25 09:27 Review of Systems 2 Review of Systems: All systems reviewed & are unremarkable except as noted in HPI and below PMFSH Past Medical History Medical History BUBBA (obstructive sleep apnea) Morbid obesity Surgical History Surgical History History of section S/P laparoscopic cholecystectomy Social History Social History Smoking status: Never smoker Living arrangements: with family Spiritual care concerns: No Exam 2 Narrative: GENERAL: Well-appearing, well-nourished, and in no acute distress. HEAD: Normocephalic, atraumatic. EYES: EOMI. ENT: Nares clear, no rhinorrhea or epistaxis. Mucous membranes moist. NECK: Supple. CHEST: Clear to auscultation. No respiratory distress. HEART: Regular rate and rhythm. No murmur heard. Normal peripheral pulses. ABDOMEN: Soft, nontender, nondistended, normal active bowel sounds. No rebound, guarding or rigidity. No CVA tenderness EXTREMITIES: Normal range of motion. No edema. SKIN: Warm, dry, no rash. NEURO: No focal deficits. Alert and oriented x3 Course Vital Signs Vital signs: Vital Signs Temperature 98 F 01/24/25 09:32 Pulse Rate 86 01/24/25 09:32 Respiratory Rate 14 01/24/25 09:32 Blood Pressure 120/77 01/24/25 09:32 Pulse Oximetry 100 01/24/25 09:32 Oxygen Delivery Room Air 01/24/25 09:32 Temperature 98 F 01/24/25 09:32 Pulse Rate 86 01/24/25 09:32 Respiratory Rate 14 01/24/25 09:32 Blood Pressure 120/77 01/24/25 09:32 Pulse Oximetry 100 01/24/25 09:32 Oxygen Delivery Room Air 01/24/25 09:32 MDM - Chest Pain MDM Narrative Medical decision making narrative: 39-year-old female presents to the emergency department for substernal chest pain/epigastric pain that started at 3:00 a.m. this morning. Triage vitals are stable. Patient is afebrile and nontoxic appearing and resting comfortably in exam bed. She is asymptomatic at the time of my initial evaluation. EKG shows normal sinus rhythm with a rate of 83 ppm, normal [place] interval, normal QRS duration, normal QTC, Q-waves in lead 3, no ST elevations or depressions. Troponin is undetectable. Perc rule negative for DVT. CBC and chemistries are unremarkable, normal LFTs, normal lipase. No leukocytosis. Chest x-ray shows no acute cardiopulmonary findings. Perc negative. Patient updated on results. Patient received Pepcid and GI cocktail. Unfortunately, her symptoms shortly returned, she was then given Protonix with improvement. She is tolerating p.o. intake. I suspect her symptoms are due to GERD vs. esophageal spasm vs Mounjaro reaction. The chest pain is atypical in nature and heart score is 0. Will provide a script for Protonix and GI follow- up. Discussed dietary changes and strict ED return precautions. She is agreeable with the plan verbalized understanding. Discharged in stable condition. Lab Data 01/24/25 09:53 01/24/25 09:53 Labs: Lab Results 01/24/25 Range/Units 09:53 WBC 9.6 (4.5-10.0) K/mm3 RBC 4.22 (4.2-5.4) M/mm3 Hgb 12.4 (12.0-15.0) g/dL Hct 37.3 (37.0-47.0) % MCV 88.4 (80-100) fl MCH 29.4 (26-34) pg MCHC 33.2 (32-36) g/dl RDW 12.7 (11.5-14.5) % Plt Count 310 (150-375) k/mm3 MPV 10.1 (7.4-10.4) fl Immature Gran % (Auto) 0.4 (0-0.5) % Neut % (Auto) 69.3 (45.5-73.1) % Lymph % (Auto) 25.9 (18.3-44.2) % [place] % (Auto) 4.0 (2.6-8.5) % Eos % (Auto) 0.1 (0-4.4) % Baso % (Auto) 0.3 (0.2-1.2) % Lymph # (Auto) 2.49 (0.9-3.2) K/mm3 [place] # (Auto) 0.4 (0.1-0.6) K/mm3 Eos # (Auto) 0.0 (0-0.3) K/mm3 Baso # (Auto) 0.0 (0.0-0.1) K/mm3 Abs Immat Gran (auto) 0.04 H (0.00-0.031) K/mm3 Absolute Neuts (auto) 6.7 (1.3-6.7) K/mm3 Absolute Nucleated RBC 0.000 (0.0-0.012) K/mm3 Nucleated RBC % 0.0 (0.0-0.2) % PT 13.6 (11.1-14.7) Seconds INR 1.0 APTT 29.1 (22.3-36.8) Seconds Sodium 142 (137-145) mmol/L Potassium 4.3 (3.4-5.0) mmol/L Chloride 107 (98-107) mmol/L Carbon Dioxide 25 (22-30) mmol/L Anion Gap 10 (4-12) mmol/L BUN 13 (7-17) mg/dL Creatinine 0.77 (0.7-1.0) mg/dL Estim Creat Clear Calc 86 ml/min Estimated GFR > 60 (59 - ) Glucose 96 (65-110) mg/dL Calcium 9.1 (8.4-10.2) mg/dL Total Bilirubin 0.3 (0.2-1.3) mg/dL AST 29 (14-36) U/L ALT 18 (6-35) U/L Alkaline Phosphatase 52 (38-126) U/L Troponin I < 0.012 (0.000-0.034) ng/mL Total Protein 8.0 (6.3-8.2) g/dL Albumin 4.6 (3.5-5.1) g/dL Lipase 119 (23-300) U/L Discharge Plan Discharge Clinical Impression: Atypical chest pain, GERD (gastroesophageal reflux disease) Patient Disposition: Home Condition: Stable Instructions: Antibiotic Form, Chest Pain (DC), Diet for Stomach Ulcers and Gastritis (ED), Esophageal Spasm (ED) Additional Instructions: You were evaluated in the emergency department for chest pain. Your workup here is reassuring. Your symptoms are likely consistent to a GI cause such as a reaction from intermittent dry RO verses a esophageal spasm versus GERD. Please take the Protonix as directed. Refrain from alcohol, acidic foods, coffee, NSAIDs as discussed. Follow-up closely with the GI physician. Return to the emergency department if you develop new or worsening symptoms. Patient Language: Colombian Prescriptions: New pantoprazole 40 mg tablet,delayed release (DR/EC) 40 mg PO HS Qty: 14 0RF No Action albuterol sulfate 90 mcg/actuation HFA aerosol inhaler 1 inh inhalation QID PRN (Reason: shortness of breath or wheezing) Qty: 8.5 0RF Follow-up/Referrals: Jay Wiley MD [Physician] - Emmy,Gloria Hankins APRN [Primary Care Provider] - Quality HEART score for chest pain patients History: slightly suspicious ECG: normal Age: < or = to 45 years Risk factors: no risk factors known Troponin: < or = to 1x normal limit Heart score: 0 "
--- NOTE | 2025-01-24 09:55 | ED.CHESTPAIN ---
HPI - Chest Pain General Chief Complaint: Chest Pain Stated Complaint: chest pain since 0300 Time Seen by Provider: 01/24/25 09:42 History of Present Illness HPI narrative: 39-year-old female with history of cholecystectomy in [place] presents to the emergency department for intermittent lower chest pain/epigastric pain since 3:00 a.m. this morning. Patient states she woke up in the middle the night with discomfort in this region that she describes as a “tight” and squeezing sensation. She states the pain is intermittent and will occur every few seconds to few minutes, however over the past hour has become less frequent. She states at times it radiates into her back. She initially thought her symptoms were due to indigestion which she has frequently, so she took some [id number] antacids without improvement. States she had pizza and wings for dinner around 5:00 p.m. last night. She denies cough, congestion, hemoptysis, shortness of breath, fever, history of VTE, lower extremity edema. Patient is not currently having symptoms at time of my evaluation. Related Data Allergies Allergy/AdvReac Type Severity Reaction Status Date / Time No Known Allergies Allergy Unknown Verified 01/24/25 09:27 Review of Systems Review of Systems: All systems reviewed & are unremarkable except as noted in HPI and below PMFSH Past Medical History Medical History [place]UB[place] (obstructive sleep apnea) Morbid obesity Surgical History Surgical History History of section S/P laparoscopic cholecystectomy Social History Social History Smoking status: Never smoker Living arrangements: with family Spiritual care concerns: No Exam Narrative: GENERAL: Well-appearing, well-nourished, and in no acute distress. HEAD: Normocephalic, atraumatic. EYES: EOMI. ENT: Nares clear, no rhinorrhea or epistaxis. Mucous membranes moist. NECK: Supple. CHEST: Clear to auscultation. No respiratory distress. HEART: Regular rate and rhythm. No murmur heard. Normal peripheral pulses. ABDOMEN: Soft, nontender, nondistended, normal active bowel sounds. No rebound, guarding or rigidity. No CVA tenderness EXTREMITIES: Normal range of motion. No edema. SKIN: Warm, dry, no rash. NEURO: No focal deficits. Alert and oriented x3 Course Vital Signs Vital signs: Vital Signs Temperature 98 F 01/24/25 09:32 Pulse Rate 86 01/24/25 09:32 Respiratory Rate 14 01/24/25 09:32 Blood Pressure 120/77 01/24/25 09:32 Pulse Oximetry 100 01/24/25 09:32 Oxygen Delivery Room Air 01/24/25 09:32 Temperature 98 F 01/24/25 09:32 Pulse Rate 86 01/24/25 09:32 Respiratory Rate 14 01/24/25 09:32 Blood Pressure 120/77 01/24/25 09:32 Pulse Oximetry 100 01/24/25 09:32 Oxygen Delivery Room Air 01/24/25 09:32 MDM - Chest Pain MDM Narrative Medical decision making narrative: 39-year-old female presents to the emergency department for substernal chest pain/epigastric pain that started at 3:00 a.m. this morning. Triage vitals are stable. Patient is afebrile and nontoxic appearing and resting comfortably in exam bed. She is asymptomatic at the time of my initial evaluation. EKG shows normal sinus rhythm with a rate of 83 ppm, normal [place] interval, normal QRS duration, normal QTC, Q-waves in lead 3, no ST elevations or depressions. Troponin is undetectable. Perc rule negative for DVT. CBC and chemistries are unremarkable, normal LFTs, normal lipase. No leukocytosis. Chest x-ray shows no acute cardiopulmonary findings. Perc negative. Patient updated on results. Patient received Pepcid and GI cocktail. Unfortunately, her symptoms shortly returned, she was then given Protonix with improvement. She is tolerating p.o. intake. I suspect her symptoms are due to GERD vs. esophageal spasm vs Mounjaro reaction. The chest pain is atypical in nature and heart score is 0. Will provide a script for Protonix and GI follow-up. Discussed dietary changes and strict ED return precautions. She is agreeable with the plan verbalized understanding. Discharged in stable condition. Lab Data 01/24/25 09:53 01/24/25 09:53 Labs: Lab Results 01/24/25 Range/Units 09:53 WBC 9.6 (4.5-10.0) K/mm3 RBC 4.22 (4.2-5.4) M/mm3 Hgb 12.4 (12.0-15.0) g/dL Hct 37.3 (37.0-47.0) % MCV 88.4 (80-100) fl MCH 29.4 (26-34) pg MCHC 33.2 (32-36) g/dl RDW 12.7 (11.5-14.5) % Plt Count 310 (150-375) k/mm3 MPV 10.1 (7.4-10.4) fl Immature Gran % (Auto) 0.4 (0-0.5) % Neut % (Auto) 69.3 (45.5-73.1) % Lymph % (Auto) 25.9 (18.3-44.2) % [place] % (Auto) 4.0 (2.6-8.5) % Eos % (Auto) 0.1 (0-4.4) % Baso % (Auto) 0.3 (0.2-1.2) % Lymph # (Auto) 2.49 (0.9-3.2) K/mm3 [place] # (Auto) 0.4 (0.1-0.6) K/mm3 Eos # (Auto) 0.0 (0-0.3) K/mm3 Baso # (Auto) 0.0 (0.0-0.1) K/mm3 Abs Immat Gran (auto) 0.04 H (0.00-0.031) K/mm3 Absolute Neuts (auto) 6.7 (1.3-6.7) K/mm3 Absolute Nucleated RBC 0.000 (0.0-0.012) K/mm3 Nucleated RBC % 0.0 (0.0-0.2) % PT 13.6 (11.1-14.7) Seconds INR 1.0 APTT 29.1 (22.3-36.8) Seconds Sodium 142 (137-145) mmol/L Potassium 4.3 (3.4-5.0) mmol/L Chloride 107 (98-107) mmol/L Carbon Dioxide 25 (22-30) mmol/L Anion Gap 10 (4-12) mmol/L BUN 13 (7-17) mg/dL Creatinine 0.77 (0.7-1.0) mg/dL Estim Creat Clear Calc 86 ml/min Estimated GFR > 60 (59 - ) Glucose 96 (65-110) mg/dL Calcium 9.1 (8.4-10.2) mg/dL Total Bilirubin 0.3 (0.2-1.3) mg/dL AST 29 (14-36) U/L ALT 18 (6-35) U/L Alkaline Phosphatase 52 (38-126) U/L Troponin I < 0.012 (0.000-0.034) ng/mL Total Protein 8.0 (6.3-8.2) g/dL Albumin 4.6 (3.5-5.1) g/dL Lipase 119 (23-300) U/L Discharge Plan Discharge Clinical Impression: Atypical chest pain, GERD (gastroesophageal reflux disease) Patient Disposition: Home Condition: Stable Instructions: Antibiotic Form, Chest Pain (DC), Diet for Stomach Ulcers and Gastritis (ED), Esophageal Spasm (ED) Additional Instructions: You were evaluated in the emergency department for chest pain. Your workup here is reassuring. Your symptoms are likely consistent to a GI cause such as a reaction from intermittent dry RO verses a esophageal spasm versus GERD. Please take the Protonix as directed. Refrain from alcohol, acidic foods, coffee, NSAIDs as discussed. Follow-up closely with the GI physician. Return to the emergency department if you develop new or worsening symptoms. Patient Language: Irish Prescriptions: New pantoprazole 40 mg tablet,delayed release (DR/EC) 40 mg PO HS Qty: 14 0RF No Action albuterol sulfate 90 mcg/actuation HFA aerosol inhaler 1 inh inhalation QID PRN (Reason: shortness of breath or wheezing) Qty: 8.5 0RF Follow-up/Referrals: Jay Wiley MD [Physician] - Emmy,Gloria Hankins APRN [Primary Care Provider] - Quality HEART score for chest pain patients History: slightly suspicious ECG: normal Age: < or = to 45 years Risk factors: no risk factors known Troponin: < or = to 1x normal limit Heart score: 0
[2025-01-24 10:07] LABS: Basophils Percent Auto 0.3 % (0.2-1.2); Eosinophils Percent Auto 0.1 % (0-4.4); Hematocrit 37.3 % (37.0-47.0); Hemoglobin 12.4 g/dL (12.0-15.0); Immature Granulocyte Absolute 0.04 K/mm3 (0.00-0.031); Immature Granulocyte Percent A 0.4 % (0-0.5); Lymphocytes Absolute Auto 2.49 K/mm3 (0.9-3.2); Lymphocytes Percent Auto 25.9 % (18.3-44.2); Mean Corpuscular HGB Conc 33.2 g/dl (32-36); Mean Corpuscular Hemoglobin 29.4 pg (26-34); Mean Corpuscular Volume 88.4 fl (80-100); Mean Platelet Volume 10.1 fl (7.4-10.4); Monocytes Absolute Auto 0.4 K/mm3 (0.1-0.6); Neutrophils Absolute Auto 6.7 K/mm3 (1.3-6.7); Neutrophils Percent Auto 69.3 % (45.5-73.1); Platelet Count Result 310 k/mm3 (150-375); Red Blood Count 4.22 M/mm3 (4.2-5.4); Red Cell Distribution Width 12.7 % (11.5-14.5); White Blood Count 9.6 K/mm3 (4.5-10.0)
[2025-01-24] MEDS: FAMOTIDINE 20 MG/2 ML VIAL IV PUSH (10:15)
[2025-01-24] MEDS: BELLADONNA ALK/PHENOB ELIX 10 ML, MAG HYDROX/ALUMINUM HYD/SIMETH 30 ML, LIDOCAINE 2% VI... PO (10:15)
[2025-01-24 10:18] LABS: Alanine Aminotransferase 18 U/L (6-35); Albumin Level 4.6 g/dL (3.5-5.1); Alkaline Phosphatase 52 U/L (38-126); Anion Gap 10 mmol/L (4-12); Aspartate Amino Transferase 29 U/L (14-36); Bilirubin,Total 0.3 mg/dL (0.2-1.3); Blood Urea Nitrogen 13 mg/dL (7-17); Calcium 9.1 mg/dL (8.4-10.2); Carbon Dioxide 25 mmol/L (22-30); Chloride 107 mmol/L (98-107); Estimated CRCL calculation 86 ml/min; Estimated Glomerular Filt Rate > 60; Glucose 96 mg/dL (65-110); Lipase 119 U/L (23-300); Potassium 4.3 mmol/L (3.4-5.0); Prothrombin Time 13.6 Seconds (11.1-14.7); Sodium 142 mmol/L (137-145)
[2025-01-24 10:19] LABS: Partial Thromboplastin Time 29.1 Seconds (22.3-36.8)
--- OUTSIDE RECORDS SUMMARY | 2025-01-24 10:28 | XMS_ITS | Clinical Summary ---
Author Organization [facility] Care Team Providers Care Software Engineer Web Services Name Role Phone Unavailable Primary Care Provider [...]
--- OUTSIDE RECORDS SUMMARY | 2025-01-24 10:28 | XMS_ITS | Clinical Summary ---
Author Organization [facility] Address [facility] [place] [address] Care Team Providers Care Director Of Workforce Development Name Role Phone Unavailable Primary Care Provider Unavailabl e Encounters Date Type Department Care Team Description 12/03/2024 7:35 AM CDT - 12/03/2024 11:59 PM CDT Hospital Encounter [facility] [place] [address] Alia Jain MD Discharge Disposition: Home or [...] * Pathology (12/04/2024 12:00 AM CDT) PATHOLOGY [facility] Department of Laboratory Medicine [address] [place] [address] , extension [phone] Pathology Report Surgical Pathology Report Name: ROMINA GARNER Specimen #: [id number] Age: 4 1985 (Age: 38) Location: [facility] Sex: F Procedure Date: 12/04/2024 Hospital #: [id number] Date Received: 12/05/2024 Date Reported: 12/06/2024 Provider: [...] aggregate. Sections reveal pale yellow cut surfaces. Splitter Head tissue is submitted in cassette 1. Gross examination (when applicable) was performed at [facility], [address] [place] [address]. This case was interpreted and signed out at [facility], [address] [place] [address]. Electronically Signed Out MAURO MORRIS MD [facility] 12/04/2024 12/05/2024 11: 56 AM CDT Comment:Soft tissue mass, le ft mid back us Alia Jain MD PATHOLOGY/CYTOLOGY OR DERABLES Final Result [facility] [address] [place] [address], [id number] from Last 3 Months
[2025-01-24 10:30] LABS: Troponin I < 0.012 ng/mL (0.000-0.034)
[2025-01-24] MEDS: PANTOPRAZOLE SODIUM IV 40 MG VIAL IV PUSH (11:05)
[2025-01-24 11:38] VITALS: BP 124/79; PULSE 79; RESP 18; O2SAT 97
== END 2025-01-24 11:40 | disposition home or self-care (01) ==
PROVIDERS: Emergency Medicine; Emergency Provider Physician Assistant
DX: R07.89 Other chest pain (principal); K21.9 Gastro-esophageal reflux disease without esophagitis; G47.33 Obstructive sleep apnea (adult) (pediatric); Z90.49 Acquired absence of other specified parts of digestive tract
CPT/HCPCS: 36415; 71046; 80053; 83690; 84484; 85025; 85610; 85730; 93005; 96374; 96375; 99284; A9270; J2470